=== PATIENT | male | born 1940 | race Caucasian/White ===

== ENCOUNTER 2024-03-17 14:02 | Emergency (ER) | payer OTHER, BC ==
[~2024-03-17] VITALS: Ht 172.7 cm; Wt 77.2 kg
[2024-03-17 14:22] VITALS: BP 133/73; PULSE 96; RESP 15; TEMP 97.9; O2SAT 97
[2024-03-17] MEDS: TETanus/Pertussis (Acell)/Diphther VAC/PF (Tdap-Adult) 0.5ml syringe IMVAC ONE (14:58)
== END 2024-03-17 15:22 | disposition home or self-care (01) ==
LOC: ER 14:02
DX: S61.412A Laceration without foreign body of left hand, initial encounter (principal); W45.8XXA Other foreign body or object entering through skin, initial encounter; Y93.89 Activity, other specified; Y92.89 Other specified places as the place of occurrence of the external cause; Y99.8 Other external cause status
CPT/HCPCS: 90471; 90715; 99283